=== PATIENT | female | born 1965 | race African-American/Black ===

== ENCOUNTER 2016-09-19 16:08 | Emergency (ER) | payer OTHER ==
[~2016-09-19] VITALS: Ht 167.6 cm; Wt 104.3 kg
[~2016-09-19 16:08] MED LIST: ALBUTEROL SULF8.5 GM INH; AZITHROMYCIN250 MG PO; CIPRO500 MG PO; CIPROFLOXACIN500 M2 ORAL; IBUPROFEN600 MG ORAL; MACROBID100 MG ORAL; NAPROXEN375 M2 ORAL; NITROFURANTOIN100 M2 ORAL; NKM; NORCO 5-325 TA1 EACH ORAL; NORCO 5-325 TA1 EACH PO; OMEPRAZOLE40 M1 ORAL; PHENAZOPYRIDIN200 MG ORAL; PHENERGAN/CODE120 ML PO; TRAMADOL HCL50 MG ORAL
[2016-09-19] MEDS ORDERED: Ketorolac 30mg Inj IV ONE (16:45)
[2016-09-19 17:30] VITALS: BP 106/70
[2016-09-19 17:31] LABS: APPEARANCE,URINE SLIGHTLY CLOUDY; KETONES,URINE NEGATIVE (NEGATIVE); LEUKOCYTE ESTERASE ,URINE 1+ (NEGATIVE); NITRITE,URINE NEGATIVE (NEGATIVE); PH,URINE 6 (4.5-8.0); PROTEIN,URINE NEGATIVE (NEGATIVE); UROBILINOGEN,URINE NORMAL MG/DL (0.0-1.0)
[2016-09-19 17:39] LABS: WBC,URINE 0-2 /HPF (0 - 2)
[2016-09-19 17:40] LABS: BACTERIA,URINE OCCASIONAL /HPF; SQUAMOUS EPITHELIAL CELL,UR MANY /LPF (NONE/OCC)
[2016-09-19 17:52] LABS: BASOPHILS % (AUTO) 1.4 % (0.0-2.0); EOSINOPHILS % (AUTO) 2.7 % (0.0-3.0); LYMPHOCYTES % (AUTO) 39.1 % (20.0-45.0); MEAN CORPUSCULAR HEMOGLOBIN 30.7 PG (27.0-31.0); MEAN CORPUSCULAR HGB CONC 34.9 G/DL (32.0-36.0); MEAN CORPUSCULAR VOLUME 88 FL (80-99); MEAN PLATELET VOLUME 6.9 FL (6.5-10.1); MONOCYTES % (AUTO) 6.3 % (1.0-10.0); NEUTROPHILS % (AUTO) 50.5 % (45.0-75.0); PLATELET COUNT 257 K/UL (150-450); RED BLOOD COUNT 4.43 M/UL (4.20-5.40); RED CELL DISTRIBUTION WIDTH 13.4 % (11.6-14.8); WHITE BLOOD COUNT 6.3 K/UL (4.8-10.8)
[2016-09-19 18:08] LABS: ALANINE AMINOTRANSFERASE 22 U/L (3-33); ALBUMIN/GLOBULIN RATIO 1.2 (1.0-2.7); ANION GAP 15 (5-15); ASPARTATE AMINO TRANSFERASE 22 U/L (5-40); CALCIUM 9.4 mg/dL (8.6-10.2); CARBON DIOXIDE 26 mEQ/L (20-30); CHLORIDE 100 mEQ/L (98-107); CREATININE 0.8 mg/dL (0.5-0.9); GLOMERULAR FILTRATION RATE > 60 mL/min (>60); HEMOLYSIS 59; POTASSIUM 4.3 mEQ/L (3.4-4.9); SODIUM 141 mEQ/L (135-145); TOTAL PROTEIN 7.5 g/dL (6.6-8.7)
[2016-09-19] MEDS ORDERED: TRAMADOL HCL50 MG ORAL (18:21)
[2016-09-19] MEDS ORDERED: IBUPROFEN600 MG ORAL (18:21)
[2016-09-19 18:58] VITALS: BP 127/85
--- NOTE | 2016-09-19 21:45 | Emergency Room Report ---
History of Present Illness General Chief Complaint: Abdominal Pain Present Illness [facility] The patient is a 50-year-old female presenting for lower back and abdominal pain. The patient states that she was at her primary doctor's office and told to come to the emergency department for further evaluation. She states that pain began 3 days prior in the lower abdomen and has radiated to the right lower back. It is described as a 9/10 sharp sensation. No known provoking or relieving factors. She does state that she has been experiencing perimenopause and menstruation has been irregular and more painful than usual. She is unsure if this is due to menstruation. She denies vaginal bleeding. She denies other symptoms including nausea, vomiting, fever, chills, cough, chest pain, shortness of breath, dysuria, hematuria, increased urinary frequency, diarrhea, constipation Allergies: Coded Allergies: No Known Allergies (Unverified , 06/05/12) Patient History Past Medical History: see triage record Pertinent Family History: none Last Menstrual Period: 08/12/16 Now: No : 3 Para: 3 Reviewed Nursing Documentation: PMH: Agreed, PSxH: Agreed Nursing Documentation-PMH Hx Cardiac Problems: No Hx Hypertension: No Hx Pacemaker: No Hx Asthma: No Hx COPD: No Hx Diabetes: No Hx Cancer: No Hx Dialysis: No Hx Neurological Problems: No Hx Cerebrovascular Accident: No Hx Seizures: No Review of Systems All Other Systems: negative except mentioned in HPI Physical Exam Vital Signs Date Time Temp Pulse Resp B/P Pulse Ox O2 Delivery O2 Flow Rate FiO2 09/19/16 16:25 98.1 79 18 106/70 82 Room Air Sp02 EP Interpretation: reviewed, normal General Appearance: no apparent distress, alert, GCS 15, non-toxic Head: normocephalic, atraumatic Eyes: bilateral eye PERRL, bilateral eye normal inspection ENT: hearing grossly normal, normal pharynx, no angioedema, normal voice Neck: full range of motion, supple/symm/no masses Respiratory: chest non-tender, lungs clear, normal breath sounds, speaking full sentences Cardiovascular #1: regular rate, rhythm, no edema Gastrointestinal: normal bowel sounds, soft, no mass, no guarding, tenderness - suprapubic and RLQ Genitourinary: normal inspection, no CVA tenderness Musculoskeletal: back normal, gait/station normal, normal range of motion, non- tender, calf tenderness Neurologic: alert, oriented x3, responsive, motor strength/tone normal, sensory intact, normal gait, speech normal Psychiatric: judgement/insight normal, memory normal, mood/affect normal, no suicidal/homicidal ideation Skin: normal color, no rash, warm/dry, well hydrated Lymphatic: no adenopathy Medical Decision Making PA Attestation Dr. Brown is my supervising physician. Patient management was discussed with my supervising physician Diagnostic Impression: Primary Impression: Abdominal pain Qualified Codes: R10.9 - Unspecified abdominal pain ER Course The patient is a 50-year-old female presenting for lower back and abdominal pain Differential diagnosis considered but not limited to: UTI, vaginitis, pyelonephritis, pyelonephrosis, dysmenorrhea, appendicitis PE: Vitals WNL. NAD. Abdomen: Normal appearance. Non distended. No ecchymosis. Normal BS. Tenderness to palpation over her suprapubic and right lower quadrant. No McBurney point tenderness. No guarding. No CVA tenderness Pelvic ultrasound unremarkable Blood work and urinalysis both unremarkable. The patient was given IV fluids and Toradol and is feeling much better. She will followup with PMD. ER precautions are given Laboratory Tests Test 09/19/16 16:30 09/19/16 17:37 Urine Color Yellow Urine Appearance Slightly cloudy Urine pH 6 (4.5-8.0) Urine Specific [place] 1.020 (1.005-1.035) Urine Protein Negative (NEGATIVE) Urine Glucose (UA) Negative (NEGATIVE) Urine Ketones Negative (NEGATIVE) Urine Occult Blood Negative (NEGATIVE) Urine Nitrite Negative (NEGATIVE) Urine Bilirubin Negative (NEGATIVE) Urine Urobilinogen Normal MG/DL (0.0-1.0) Urine Leukocyte Esterase 1+ (NEGATIVE) H Urine RBC 2-4 /HPF (0 - 2) H Urine WBC 0-2 /HPF (0 - 2) Urine Squamous Epithelial Cells Many /LPF (NONE/OCC) H Urine Bacteria Occasional /HPF (NONE) Urine HCG, Qualitative Negative White Blood Count 6.3 K/UL (4.8-10.8) Red Blood Count 4.43 M/UL (4.20-5.40) Hemoglobin 13.6 G/DL (12.0-16.0) Hematocrit 38.9 % (37.0-47.0) Mean Corpuscular Volume 88 FL (80-99) Mean Corpuscular Hemoglobin 30.7 PG (27.0-31.0) Mean Corpuscular Hemoglobin Concent 34.9 G/DL (32.0-36.0) Red Cell Distribution Width 13.4 % (11.6-14.8) Platelet Count 257 K/UL (150-450) Mean Platelet Volume 6.9 FL (6.5-10.1) Neutrophils (%) (Auto) 50.5 % (45.0-75.0) Lymphocytes (%) (Auto) 39.1 % (20.0-45.0) Monocytes (%) (Auto) 6.3 % (1.0-10.0) Eosinophils (%) (Auto) 2.7 % (0.0-3.0) Basophils (%) (Auto) 1.4 % (0.0-2.0) Sodium Level 141 mEQ/L (135-145) Potassium Level 4.3 mEQ/L (3.4-4.9) Chloride Level 100 mEQ/L (98-107) Carbon Dioxide Level 26 mEQ/L (20-30) Anion Gap 15 (5-15) Blood Urea Nitrogen 12 mg/dL (7-23) Creatinine 0.8 mg/dL (0.5-0.9) Estimate Glomerular Filtration Rate > 60 mL/min (>60) Glucose Level 99 mg/dL (74-106) Calcium Level 9.4 mg/dL (8.6-10.2) Total Bilirubin 0.2 mg/dL (0.0-1.2) Aspartate Amino Transferase (AST) 22 U/L (5-40) Alanine Aminotransferase (ALT) 22 U/L (3-33) Alkaline Phosphatase 78 U/L (35-104) Total Protein 7.5 g/dL (6.6-8.7) Albumin 4.1 g/dL (3.5-5.2) Globulin 3.4 g/dL Albumin/Globulin Ratio 1.2 (1.0-2.7) Lab Results Impression all unremarkable CT/MRI/US Diagnostic Results CT/MRI/US Diagnostic Results : Imaging Test Ordered: pelvic US Impression calcifications of uterus. Otherwise unremarkable Last Vital Signs Date Time Temp Pulse Resp B/P Pulse Ox O2 Delivery O2 Flow Rate FiO2 09/19/16 18:58 75 16 127/85 95 Room Air 09/19/16 18:21 98.0 Status: improved Disposition: HOME, SELF-CARE Condition: Improved Scripts Tramadol Hcl* (ULTRAM*) 50 Mg Tablet 50 MG ORAL Q8HR Y for For Pain, #10 TAB 0 Refills Prov: VEENA CASTAÑEDA P.A. 09/19/16 Ibuprofen* (MOTRIN*) 600 Mg Tablet 600 MG ORAL Q8H Y for For Pain, #30 TAB 0 Refills Prov: VEENA CASTAÑEDA P.A. 09/19/16 Patient Instructions: Abdominal Pain, Adult Additional Instructions: I discussed my findings with the patient. All questions and concerns have been answered. Treatment and medication compliance have been addressed. I advised the patient that they need to follow up with PMD in 3-5 days. Return to ED if symptoms worsen, new symptoms arise, or if needed for any reason. Patient verbalized understanding of discharge instructions. VEENA CASTAÑEDA September 19, 2016 21:45
--- NOTE | 2016-09-20 10:37 | Diagnostic Imaging Report ---
Indications: Right-sided pelvic pain, LMP 08/12/2016 Technique: Transabdominal and transvaginal real-time grayscale and duplex Doppler imaging of the pelvis was performed. Findings: Comparison: CT abdomen pelvis 11/28/08; pelvic ultrasound 11/03/06 Uterus measures 7.3 x 5.3 x 4.2cm. It demonstrates normal contour and myometrial echotexture.. The endometrial complex measures 2.4 mm in diameter. A small cluster of small nodular echogenic non-shadowing foci reside either within or directly adjacent to the posterior margin of the endometrial echo complex.. Small cysts in the cervix. No free fluid is present in the cul-de-sac. Right ovary measures 2.2 x 1.9 x 1 cm. It is unremarkable in appearance. Duplex Doppler imaging demonstrates normal blood flow. No extra-ovarian abnormality is seen. Left ovary measures 2.3 x 2.5 x 1.1 cm. It is unremarkable in appearance. Duplex Doppler imaging demonstrates normal blood flow. No extra-ovarian abnormality is seen. IMPRESSION: Unremarkable ovaries/adnexa--no evidence of torsion or other abnormality Small echogenic foci in or adjacent to endometrial echo complex may represent calcifications of nonspecific etiology, may be postinflammatory, postsurgical/postprocedural, or represent adjacent small degenerated, otherwise sonographically occult fibroid Cervical nabothian cysts
== END 2016-09-19 19:04 | disposition home or self-care (01) ==
LOC: EMR 17:21
DX: R10.9 Unspecified abdominal pain (principal); N85.8 Other specified noninflammatory disorders of uterus; M54.5 Low back pain; Z78.0 Asymptomatic menopausal state; N92.6 Irregular menstruation, unspecified; N94.6 Dysmenorrhea, unspecified
CPT/HCPCS: 36415; 76830; 76856; 80053; 81003; 81025; 85025; 96374; 99284; J1885

== ENCOUNTER 2017-10-07 12:31 | Emergency (ER) | payer MEDICAID, OTHER ==
[~2017-10-07] VITALS: Ht 167.6 cm; Wt 106.1 kg
--- NOTE | 2017-10-07 13:03 | Emergency Room Report ---
History of Present Illness General Chief Complaint: Pain Source: Patient Present Illness HPI 51-year-old female presents to the emergency Department with multiple complaints. First complaining of 10 out of 10 in severity bilateral pain to the plantar aspect/heel of the feet. Patient denies trauma or fall she denies known history of diabetes. Patient denies open wounds or rashes. Patient states that she has been having moderate strenuous activity because she has been helping her daughter move. Second complaint is multiple burning lesions in the groin area 2 days. Patient states initially she had to but now she is noticing that there are several more. Patient denies swollen tender lymph nodes , is not protected intercourse, history of herpes/STD's, or new soaps/ detergents. Patient denies itching. She also denies vaginal discharge. Patient reports that she has pain upon urination,in addition to urinary urgency. She denies fevers, chills, abdominal tenderness, constipation or diarrhea. Denies CP, Palpitations, LOC, AMS, dizziness, Changes in Vision, Sensation, paresthesias, or a sudden severe headache. Allergies: Coded Allergies: No Known Allergies (Unverified , 06/05/12) Patient History Past Medical History: see triage record Past Surgical History: none Pertinent Family History: none Last Menstrual Period: 08/2017 Now: No Reviewed Nursing Documentation: PMH: Agreed; PSxH: Agreed Nursing Documentation-PMH Hx Cardiac Problems: No Hx Hypertension: No Hx Pacemaker: No Hx Asthma: No Hx COPD: No Hx Diabetes: No Hx Cancer: No Hx Dialysis: No Hx Neurological Problems: No Hx Cerebrovascular Accident: No Hx Seizures: No Review of Systems All Other Systems: negative except mentioned in HPI Physical Exam Vital Signs Date Time Temp Pulse Resp B/P (MAP) Pulse Ox O2 Delivery O2 Flow Rate FiO2 10/07/17 12:36 98.3 84 17 123/64 95 Room Air 98.2 Sp02 EP Interpretation: reviewed, normal General Appearance: no apparent distress, alert, GCS 15, non-toxic Head: normocephalic, atraumatic ENT: hearing grossly normal, normal voice Neck: full range of motion Respiratory: chest non-tender, lungs clear, normal breath sounds, speaking full sentences Cardiovascular #1: regular rate, rhythm, no edema Gastrointestinal: non tender, soft Rectal: deferred Genitourinary: normal inspection Musculoskeletal: back normal, gait/station normal, normal range of motion, tender - the plantar aspect of the heels bilaterally. Neurologic: alert, oriented x3, responsive, motor strength/tone normal, sensory intact, normal gait, speech normal, grossly normal Psychiatric: judgement/insight normal Skin: normal color, warm/dry, well hydrated, rash - Painful vesicular lesions in a cropped/grouped pattern. no blisters, no abscess. Lymphatic: no adenopathy Medical Decision Making PA Attestation Dr. jaimes is my supervising Physician whom patient management has been discussed with. Diagnostic Impression: Primary Impression: Plantar fasciitis, bilateral Additional Impression: Herpetic lesions ER Course 51-year-old female presents to the emergency Department with multiple complaints. First complaining of 10 out of 10 in severity bilateral pain to the plantar aspect/heel of the feet. Patient denies trauma or fall she denies known history of diabetes. Patient denies open wounds or rashes. Patient states that she has been having moderate strenuous activity because she has been helping her daughter move. Second complaint is multiple burning lesions in the groin area 2 days. Patient states initially she had to but now she is noticing that there are several more. Patient denies swollen tender lymph nodes , is not protected intercourse, history of herpes/STD's, or new soaps/ detergents. Patient denies itching. She also denies vaginal discharge. Patient reports that she has pain upon urination,in addition to urinary urgency. She denies fevers, chills, abdominal tenderness, constipation or diarrhea. Denies CP, Palpitations, LOC, AMS, dizziness, Changes in Vision, Sensation, paresthesias, or a sudden severe headache. Ddx considered but are not limited to cellulitis/abscess, shingles, tinea, Herpes/STD, Neuropathy, plantar fasciitis, tendinitis, UTI just to name a few Vital signs: are WNL, pt. is afebrile H&PE are most consistent with : 1. Plantar fasciitis of the bilateral feet 2. Herpetic lesions in the vaginal area. - Painful vesicular lesions in a cropped/grouped pattern. ORDERS: -UA:Unremarkable ED INTERVENTIONS: Mortin PO -I do not identify an emergent condition at this time. With current presentation , pt. is stable for close outpatient follow up and conservative treatment. D/ w pt. to return promptly to ED with worsening or new symptoms.- Pt. (and or responsible alliance party) verbalizes' understanding and agreement with proposed treatment plan.proposed treatment plan. DISCHARGE: At this time pt. is stable for d/c to home. Will provide printed patient care instructions, and any necessary prescriptions. Care plan and follow up instructions have been discussed with the patient prior to discharge. Labs Test 10/07/17 13:00 Urine Color Pale yellow Urine Appearance Slightly cloudy Urine pH 5 (4.5-8.0) Urine Specific [place] 1.025 (1.005-1.035) Urine Protein Negative (NEGATIVE) Urine Glucose (UA) Negative (NEGATIVE) Urine Ketones Negative (NEGATIVE) Urine Occult Blood Negative (NEGATIVE) Urine Nitrite Negative (NEGATIVE) Urine Bilirubin Negative (NEGATIVE) Urine Urobilinogen Normal MG/DL (0.0-1.0) Urine Leukocyte Esterase 2+ (NEGATIVE) Urine RBC 0-2 /HPF (0 - 2) Urine WBC 10-15 /HPF (0 - 2) Urine Squamous Epithelial Cells Many /LPF (NONE/OCC) Urine Bacteria Few /HPF (NONE) Last Vital Signs Date Time Temp Pulse Resp B/P (MAP) Pulse Ox O2 Delivery O2 Flow Rate FiO2 10/07/17 12:36 98.3 84 17 123/64 95 Room Air 98.2 Disposition: HOME, SELF-CARE Condition: Stable Scripts Lidocaine HCL 2% Jelly* (Lidocaine Jelly 2%*) 5 Ml Jel.pf.coty 1 MG TOPIC DAILY for pain, #5 ML Prov: Risa Park P.A. 10/07/17 Valacyclovir Hcl* (VALTREX*) 500 Mg Tablet 1000 MG ORAL TWICE A DAY for 7 Days, #28 TAB Prov: Risa Park P.A. 10/07/17 Ibuprofen* (MOTRIN*) 600 Mg Tablet 600 MG ORAL THREE TIMES A DAY, #20 TAB 0 Refills Prov: Risa Park.A. 10/07/17 Patient Instructions: Genital Herpes, Plantar Fasciitis Additional Instructions: Take medications as directed. Follow up with a Primary Care Provider in 3-5 days, even if your symptoms have resolved. --Please review list of primary care clinics, if you do not already have a primary care provider Return sooner to ED if new symptoms occur, or current symptoms become worse. - Please note that this Emergency Department Report was dictated using [employer] project manager technology software, occasionally this can lead to erroneous entry secondary to interpretation by the dictation equipment. Risa Park October 07, 2017 13:03
[2017-10-07 13:13] LABS: APPEARANCE,URINE SLIGHTLY CLOUDY; BILIRUBIN, URINE NEGATIVE (NEGATIVE); COLOR,URINE PALE YELLOW; GLUCOSE, URINE (UA) NEGATIVE (NEGATIVE); KETONES,URINE NEGATIVE (NEGATIVE); LEUKOCYTE ESTERASE ,URINE 2+ (NEGATIVE); NITRITE,URINE NEGATIVE (NEGATIVE); PH,URINE 5 (4.5-8.0); PROTEIN,URINE NEGATIVE (NEGATIVE); UROBILINOGEN,URINE NORMAL MG/DL (0.0-1.0)
[2017-10-07 13:37] VITALS: BP 123/64
[2017-10-07] MEDS ORDERED: LD2JL30 TOPIC (14:12)
[2017-10-07] MEDS ORDERED: VALACYCLOVIR500 MG ORAL (14:12)
[2017-10-07] MEDS ORDERED: IBUPROFEN600 MG ORAL (14:12)
[2017-10-07 14:16] VITALS: BP 123/64
== END 2017-10-07 14:45 | disposition home or self-care (01) ==
LOC: EMR 13:09
DX: M72.2 Plantar fascial fibromatosis (principal); L98.8 Other specified disorders of the skin and subcutaneous tissue
CPT/HCPCS: 81003; 82962; 87086; 99284

== ENCOUNTER 2018-02-07 10:00 | Emergency (ER) | payer MEDICAID ==
[~2018-02-07] VITALS: Ht 167.6 cm; Wt 104.3 kg
[~2018-02-07 10:00] MED LIST changes: +LD2JL30 TOPIC; +VALACYCLOVIR500 MG ORAL
[2018-02-07 10:17] VITALS: BP 129/80
[2018-02-07] MEDS ORDERED: Acetaminophen 500mg (ES) tab ORAL ONE (10:45)
[2018-02-07] MEDS ORDERED: Cephalexin 500mg cap ORAL ONE (10:45)
[2018-02-07] MEDS ORDERED: Dexamethasone 4mg/ml vial IM ONE (10:45)
[2018-02-07 10:56] LABS: APPEARANCE,URINE CLEAR; BILIRUBIN, URINE NEGATIVE (NEGATIVE); GLUCOSE, URINE (UA) NEGATIVE (NEGATIVE); KETONES,URINE NEGATIVE (NEGATIVE); LEUKOCYTE ESTERASE ,URINE 2+ (NEGATIVE); NITRITE,URINE NEGATIVE (NEGATIVE); PH,URINE 6 (4.5-8.0); PROTEIN,URINE 1+ (NEGATIVE); UROBILINOGEN,URINE 1 MG/DL (0.0-1.0)
[2018-02-07 11:16] LABS: COLOR,URINE YELLOW
[2018-02-07] MEDS ORDERED: CEPHALEXIN500 MG ORAL (11:33)
[2018-02-07] MEDS ORDERED: METRONIDAZOLE500 MG ORAL (11:33)
[2018-02-07 11:37] VITALS: BP 129/80
--- NOTE | 2018-02-07 13:17 | Emergency Room Report ---
History of Present Illness General Chief Complaint: Upper Respiratory Illness Source: Patient Present Illness HPI 52-year-old female presents ED for evaluation. Patient complaining of sore throat, fever 2 days. temp 101.1 in ED. Denies cough. Denies ear ache or sore throat. Denies sick contacts or recent travel. Pain is 9 out of 10, dull , nonradiating. Hurst to swallow. Also complaining of dysuria and increased urinary frequency for several days now. Denies flank pain. Denies nausea or vomiting. No other aggravating relieving factors. Denies any other associated symptoms Allergies: Coded Allergies: No Known Allergies (Unverified , 06/05/12) Patient History Past Medical History: none Past Surgical History: none Pertinent Family History: none Social History: Denies: smoking, alcohol use, drug use Last Menstrual Period: NA Now: No Immunizations: UTD Reviewed Nursing Documentation: PMH: Agreed; PSxH: Agreed Nursing Documentation-PMH Past Medical History: No History, Except For Hx Cardiac Problems: No Hx Hypertension: No Hx Pacemaker: No Hx Asthma: No Hx COPD: No Hx Diabetes: No Hx Cancer: No Hx Dialysis: No Hx Neurological Problems: No Hx Cerebrovascular Accident: No Hx Seizures: No Review of Systems All Other Systems: negative except mentioned in HPI Physical Exam Vital Signs Date Time Temp Pulse Resp B/P (MAP) Pulse Ox O2 Delivery O2 Flow Rate FiO2 02/07/18 10:08 101.1 94 18 129/80 96 Room Air 101.1 Sp02 EP Interpretation: reviewed, normal General Appearance: no apparent distress, alert, GCS 15, non-toxic Head: normocephalic Eyes: bilateral eye normal inspection, bilateral eye PERRL ENT: hearing grossly normal, no angioedema, normal voice, TMs + canals normal, tonsillar swelling, pharyngeal erythema, tonsillar exudate Neck: full range of motion, supple/symm/no masses Respiratory: chest non-tender, lungs clear, normal breath sounds, speaking full sentences Cardiovascular #1: normal inspection Gastrointestinal: normal inspection Rectal: deferred Genitourinary: no CVA tenderness Musculoskeletal: normal inspection Neurologic: alert, oriented x3, responsive, motor strength/tone normal, sensory intact, speech normal Psychiatric: normal inspection Skin: normal inspection Lymphatic: normal inspection Medical Decision Making Diagnostic Impression: Primary Impression: Trichimoniasis Additional Impressions: UTI (lower urinary tract infection) Pharyngitis Qualified Codes: J02.9 - Acute pharyngitis, unspecified ER Course Hospital Course 52 yo F presents to ED c/o sore throat, fever, dysuria Differential diagnoses include: URI, pharyngitis, otitis media Clinical course Patient placed on stretcher. After initial history, physical exam reveals a middle aged female in no acute distress. Bilateral TM unremarkable. There is pharyngeal erythema w/ tonsillar exudates. No lymphadenopathy. Clinical findings consistent with pharyngitis. UAsome bacteria, trichomonas present Discussed findings with patient. Given Tylenol, Decadron, Keflex here. We'll discharge on Keflex and Flagyl. Safe for discharge with close outpatient follow -up Diagnosis - trichimonas, UTI, pharyngitis Stable and discharged home with prescriptions for keflex, flagyl. Instructed to followup with PMD. return to ED if symptoms recur or worsen Labs Test 02/07/18 10:15 Urine Color Yellow Urine Appearance Clear Urine pH 6 (4.5-8.0) Urine Specific [place] 1.010 (1.005-1.035) Urine Protein 1+ (NEGATIVE) Urine Glucose (UA) Negative (NEGATIVE) Urine Ketones Negative (NEGATIVE) Urine Blood 2+ (NEGATIVE) Urine Nitrite Negative (NEGATIVE) Urine Bilirubin Negative (NEGATIVE) Urine Urobilinogen 1 MG/DL (0.0-1.0) Urine Leukocyte Esterase 2+ (NEGATIVE) Urine RBC 0-2 /HPF (0 - 2) Urine WBC 5-10 /HPF (0 - 2) Urine Squamous Epithelial Cells Few /LPF (NONE/OCC) Urine Bacteria Occasional /HPF (NONE) Urine Trichomonas Occasional /HPF (NONE) Last Vital Signs Date Time Temp Pulse Resp B/P (MAP) Pulse Ox O2 Delivery O2 Flow Rate FiO2 02/07/18 11:37 98.3 94 18 129/80 96 Room Air 101.1 Status: improved Disposition: HOME, SELF-CARE Condition: Stable Scripts Metronidazole* (FLAGYL*) 500 Mg Tablet 500 MG ORAL THREE TIMES A DAY, #21 TAB Prov: Jakub Solano MD 02/07/18 Cephalexin* (KEFLEX*) 500 Mg Capsule 500 MG ORAL EVERY 6 HOURS for 7 Days, CAP Prov: Jakub Solano MD 02/07/18 Referrals: NON PHYSICIAN (PCP) Patient Instructions: Pharyngitis, [id number] Jakub Solano MD Feb 07, 2018 13:17
== END 2018-02-07 11:50 | disposition home or self-care (01) ==
LOC: EMR 11:46
DX: J02.9 Acute pharyngitis, unspecified (principal); N39.0 Urinary tract infection, site not specified; A59.9 Trichomoniasis, unspecified
CPT/HCPCS: 81003; 96372; 99283; J1100

== ENCOUNTER 2018-02-11 10:53 | Emergency (ER) | payer SELFPAY ==
[~2018-02-11] VITALS: Ht 167.6 cm; Wt 104.3 kg
[~2018-02-11 10:53] MED LIST changes: +CEPHALEXIN500 MG ORAL; +METRONIDAZOLE500 MG ORAL
[2018-02-11 11:20] VITALS: BP 122/84
[2018-02-11] MEDS ORDERED: OCUFLOX5 ML RIGHT EYE (12:23)
[2018-02-11 12:35] VITALS: BP 122/84
--- NOTE | 2018-02-12 07:39 | Emergency Room Report ---
History of Present Illness General Chief Complaint: Eye Problems Source: Patient Present Illness HPI 52-year-old female presents ED for evaluation. States that she has an eye infection in her right eye. Started 3 days ago. Denies fevers chills. Denies photophobia or blurry vision. Patient notes crusting and purulent discharge around the eye. Denies any symptoms in the left eye. Denies sick contacts or recent travel. No other aggravating relieving factors. Denies any other associated symptoms Allergies: Coded Allergies: No Known Allergies (Unverified , 06/05/12) Patient History Past Medical History: none Past Surgical History: none Pertinent Family History: none Social History: Denies: smoking, alcohol use, drug use Now: No Immunizations: UTD Reviewed Nursing Documentation: PMH: Agreed; PSxH: Agreed Nursing Documentation-PMH Past Medical History: No History, Except For Hx Cardiac Problems: No Hx Hypertension: No Hx Pacemaker: No Hx Asthma: No Hx COPD: No Hx Diabetes: No Hx Cancer: No Hx Dialysis: No Hx Neurological Problems: No Hx Cerebrovascular Accident: No Hx Seizures: No Review of Systems All Other Systems: negative except mentioned in HPI Physical Exam Vital Signs Date Time Temp Pulse Resp B/P (MAP) Pulse Ox O2 Delivery O2 Flow Rate FiO2 02/11/18 11:09 97.7 91 18 122/84 98 Room Air 97.7 Sp02 EP Interpretation: reviewed, normal General Appearance: no apparent distress, alert, GCS 15, non-toxic Head: normocephalic Eyes: right eye Scleral Injection, right eye other - discharge R eye; left eye normal inspection; bilateral eye PERRL, bilateral eye EOMI ENT: normal ENT inspection, TMs + canals normal Neck: normal inspection Respiratory: normal inspection Cardiovascular #1: normal inspection Gastrointestinal: normal inspection Rectal: deferred Genitourinary: no CVA tenderness Musculoskeletal: normal inspection Neurologic: alert, oriented x3, responsive, motor strength/tone normal, sensory intact, speech normal Psychiatric: normal inspection Skin: normal inspection Lymphatic: normal inspection Medical Decision Making Diagnostic Impression: Primary Impression: Conjunctivitis Qualified Codes: H10.31 - Unspecified acute conjunctivitis, right eye ER Course Hospital Course 52-year-old F presents to ED with R eye discharge Differential diagnoses include: conjunctivitis, traumatic iritis, foreign body, corneal abrasion Clinical course Patient placed on stretcher. After initial history, physical exam revealed a middle-aged female no acute distress. There is injected conjunctiva R eyes. crusting noted. Pupils equally reactive to light bilaterally. No evidence of foreign body. Clinical findings consistent with conjunctivitis. Discussed findings with patient. We'll prescribe ophthalmic antibiotics. Safely discharged with close outpatient follow-up Diagnosis - conjunctivitis Stable and discharged to home with prescription for Ocuflox. Followup with PMD/ Optho. Return to ED if symptoms recur or worsen Last Vital Signs Date Time Temp Pulse Resp B/P (MAP) Pulse Ox O2 Delivery O2 Flow Rate FiO2 02/11/18 12:35 97.7 91 18 122/84 98 Room Air 97.7 Status: improved Disposition: HOME, SELF-CARE Condition: Stable Scripts Ofloxacin (OCUFLOX) 5 Ml Drops 1 DROP RIGHT EYE QID for 7 Days, ML Prov: Jakub Solano MD 02/11/18 Referrals: NON PHYSICIAN (PCP) Patient Instructions: Bacterial Conjunctivitis Jakub Solano MD Feb 12, 2018 07:39
== END 2018-02-11 12:45 | disposition home or self-care (01) ==
LOC: EMR 12:45
DX: H10.31 Unspecified acute conjunctivitis, right eye (principal)
CPT/HCPCS: 99282

== ENCOUNTER 2019-06-21 11:57 | Emergency (ER) | payer MEDICAID ==
[~2019-06-21] VITALS: Ht 167.6 cm; Wt 104.3 kg
[~2019-06-21 11:57] MED LIST changes: +LIDODERM700 M1 TOPIC; +OCUFLOX5 ML RIGHT EYE; +ROBAXIN-750750 MG PO
[2019-06-21 12:26] VITALS: BP 122/84
--- NOTE | 2019-06-21 12:26 | NUR ---
ED Nurse Note: frequent urination and dysuria x 2 weeks. no hematuria. pain now radiates to back
--- NOTE | 2019-06-21 12:38 | NUR ---
ED Nurse Note: urine sent to lab
[2019-06-21 13:03] LABS: APPEARANCE,URINE CLEAR; BILIRUBIN, URINE NEGATIVE (NEGATIVE); COLOR,URINE PALE YELLOW; GLUCOSE, URINE (UA) NEGATIVE (NEGATIVE); KETONES,URINE NEGATIVE (NEGATIVE); LEUKOCYTE ESTERASE ,URINE 2+ (NEGATIVE); NITRITE,URINE NEGATIVE (NEGATIVE); PH,URINE 5 (4.5-8.0); PROTEIN,URINE NEGATIVE (NEGATIVE); UROBILINOGEN,URINE NORMAL MG/DL (0.0-1.0)
[2019-06-21] MEDS ORDERED: CEPHALEXIN500 MG ORAL (13:20)
[2019-06-21] MEDS ORDERED: PHENAZOPYRIDIN100 MG ORAL (13:20)
--- NOTE | 2019-06-21 13:21 | Emergency Room Report ---
History of Present Illness General Chief Complaint: Female Urogenital Problems Source: Patient (Neeta Bello NThelma P.AThelma) Present Illness HPI 53-year-old female presents with 2 weeks of dysuria, frequency, suprapubic pain. Recently the pain started radiating to her bilateral flank. Denies any hematuria, fever, vomiting. Patient has history of UTI and reports the feeling is the same. Denies any vaginal itching or discharge. (Neeta Bello N. P.A.) Allergies: Coded Allergies: No Known Allergies (Unverified , 06/05/12) Patient History Past Medical History: see triage record Last Menstrual Period: none Now: No Reviewed Nursing Documentation: PMH: Agreed; PSxH: Agreed (Neeta Bello N. P.A.) Nursing Documentation-PMH Past Medical History: No History, Except For Hx Cardiac Problems: No Hx Hypertension: No Hx Pacemaker: No Hx Asthma: No Hx COPD: No Hx Diabetes: No Hx Cancer: No Hx Dialysis: No Hx Neurological Problems: No Hx Cerebrovascular Accident: No Hx Seizures: No (Neeta Bello N. P.A.) Review of Systems All Other Systems: negative except mentioned in HPI (Neeta Bello N. P.A.) Physical Exam Vital Signs Date Time Temp Pulse Resp B/P (MAP) Pulse Ox O2 Delivery O2 Flow Rate FiO2 06/21/19 12:16 98.4 85 18 122/84 (97) 99 Room Air Sp02 EP Interpretation: reviewed, normal General Appearance: normal inspection, well appearing, no apparent distress, alert, GCS 15, non-toxic Respiratory: chest non-tender, lungs clear, normal breath sounds, no respiratory distress Cardiovascular #1: normal peripheral pulses, regular rate, rhythm Gastrointestinal: normal inspection, normal bowel sounds, non tender, soft, no mass, no organomegaly, no guarding, no rebound Genitourinary: no CVA tenderness Neurologic: alert, motor strength/tone normal, 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 P.A.) Medical Decision Making PA Attestation Dr. Barnett is my supervising physician whom patient management and care has been discussed with. (Neeta Bello N. P.A.) Diagnostic Impression: Primary Impression: UTI (lower urinary tract infection) ER Course Pt. presents to the ED c/o urinary symptoms for 2 weeks Ddx considered but are not limited to UTI, pyelonephritis, nephrolithiasis, vaginitis Vital signs: are WNL, pt. is afebrile H&PE are most consistent with UTI ORDERS: Urinalysis shows evidence of UTI ED INTERVENTIONS: None required at this time. DISCHARGE: At this time pt. is stable for d/c to home. Will provide printed patient care instructions, and prescriptions for Keflex and Pyridium. Care plan and follow up instructions have been discussed with the patient prior to discharge. Laboratory Tests Test 06/21/19 12:20 Urine Color Pale yellow Urine Appearance Clear Urine pH 5 (4.5-8.0) Urine Specific [place] 1.020 (1.005-1.035) Urine Protein Negative (NEGATIVE) Urine Glucose (UA) Negative (NEGATIVE) Urine Ketones Negative (NEGATIVE) Urine Blood Negative (NEGATIVE) Urine Nitrite Negative (NEGATIVE) Urine Bilirubin Negative (NEGATIVE) Urine Urobilinogen Normal MG/DL (0.0-1.0) Urine Leukocyte Esterase 2+ (NEGATIVE) H Urine RBC 0-2 /HPF (0 - 2) Urine WBC 5-10 /HPF (0 - 2) H Urine Squamous Epithelial Cells Few /LPF (NONE/OCC) Urine Bacteria Few /HPF (NONE) (Neeta Bello N. P.A.) Last Vital Signs Date Time Temp Pulse Resp B/P (MAP) Pulse Ox O2 Delivery O2 Flow Rate FiO2 06/21/19 12:26 98.4 85 18 122/84 99 Room Air (Neeta Bello N. P.A.) Disposition: HOME, SELF-CARE Condition: Stable Scripts Phenazopyridine Hcl* (PYRIDIUM*) 100 Mg Tablet 100 MG ORAL THREE TIMES A DAY for 2 Days, #6 TAB Prov: Neeta Bello N. P.A. 06/21/19 Cephalexin* (KEFLEX*) 500 Mg Capsule 500 MG ORAL EVERY 6 HOURS for 7 Days, #28 CAP Prov: Neeta Bello N. P.A. 06/21/19 Patient Instructions: Urinary Tract Infection Additional Instructions: Take medications as directed. Follow up with a Primary Care Provider in 3-5 days, even if your symptoms have resolved. --Please review list of primary care clinics, if you do not already have a primary care provider Return sooner to ED if new symptoms occur, or current symptoms become worse. - Please note that this Emergency Department Report was dictated using [employer] technology software, occasionally this can lead to erroneous entry secondary to interpretation by the dictation equipment. Neeta Bello Jun 21, 2019 13:21 Mary Barnett M.D. Jun 30, 2019 06:29
[2019-06-21 13:28] VITALS: BP 126/79
--- NOTE | 2019-06-21 13:29 | NUR ---
ER DISCHARGE NOTE: Patient is cleared to be discharged per ERMD, pt is aox4, on room air, with stable vital signs. pt was given dc and prescription instructions, pt was able to verbalize understanding, pt id band removed. pt is able to ambulate with steady gait. pt took all belongings.
== END 2019-06-21 13:28 | disposition home or self-care (01) ==
LOC: EMR 13:21
DX: N39.0 Urinary tract infection, site not specified (principal)
CPT/HCPCS: 81003; Z7502; 99283

== ENCOUNTER 2020-03-28 09:07 | Emergency (ER) | payer OTHER ==
[~2020-03-28] VITALS: Ht 167.6 cm; Wt 104.3 kg
[~2020-03-28 09:07] MED LIST changes: +CLARITIN-D 121 EAC1 ORAL; +FLONASE ALLERG9.9 ML NS; +FLUCONAZOLE100 MG ORAL; +IBU800 MG PO; +PHENAZOPYRIDIN100 MG ORAL; +ROBAXIN-500MG ORAL
[2020-03-28 09:30] VITALS: BP 127/84
[2020-03-28] MEDS ORDERED: Acetaminophen 500mg (ES) tab ORAL ONE (10:15)
[2020-03-28] MEDS ORDERED: Ketorolac 60mg Inj IM ONE (10:15)
[2020-03-28 10:20] LABS: APPEARANCE,URINE SLIGHTLY CLOUDY; BILIRUBIN, URINE NEGATIVE (NEGATIVE); GLUCOSE, URINE (UA) NEGATIVE (NEGATIVE); KETONES,URINE NEGATIVE (NEGATIVE); LEUKOCYTE ESTERASE ,URINE 2+ (NEGATIVE); NITRITE,URINE NEGATIVE (NEGATIVE); PH,URINE 5 (4.5-8.0); PROTEIN,URINE NEGATIVE (NEGATIVE); UROBILINOGEN,URINE NORMAL MG/DL (0.0-1.0)
[2020-03-28 10:24] LABS: COLOR,URINE PALE YELLOW
--- NOTE | 2020-03-28 11:03 | Diagnostic Imaging Report ---
EXAM: CT Abdomen and Pelvis Without Intravenous Contrast CLINICAL HISTORY: PAIN TECHNIQUE: Axial computed tomography images of the abdomen and pelvis without intravenous contrast. CTDI is 22.00 mGy and DLP is 1165.60 mGy-cm. One or more of the following dose reduction techniques were used: automated exposure control, adjustment of the mA and/or kV according to patient size, use of iterative reconstruction technique. COMPARISON: CT abdomen and pelvis November 28, 2008 FINDINGS: Lung bases: Unremarkable. No mass. No consolidation. ABDOMEN: Liver: Unremarkable. Gallbladder and bile ducts: Cholecystectomy. No hydronephrosis or nephrolithiasis. No obstructive uropathy. No ductal dilation. Pancreas: Unremarkable. No ductal dilation. Spleen: Unremarkable. No splenomegaly. Adrenals: Unremarkable. No mass. Kidneys and ureters: Left upper pole renal cyst measuring 3.3 x 3.7 cm. No follow-up indicated. Stomach and bowel: Mild diverticulosis, without acute diverticulitis. No obstruction. PELVIS: Appendix: Normal appendix. Mildly prominent appendix measuring up to 7 mm, without adjacent inflammation or wall thickening. Findings are consistent with a normal appendix. Bladder: Unremarkable. No stones. Reproductive: Unremarkable as visualized. ABDOMEN and PELVIS: Intraperitoneal space: Unremarkable. No free air. No significant fluid collection. Bones/joints: Degenerative changes of the spine. Soft tissues: Small fat-containing umbilical hernia. Vasculature: Unremarkable. No abdominal aortic aneurysm. Lymph nodes: Unremarkable. No enlarged lymph nodes. IMPRESSION: 1. No hydronephrosis or nephrolithiasis. No obstructive uropathy. If there is continued, high clinical suspicion for right up to the Azeb, correlate with CT urogram protocol. 2. Left upper pole renal cyst measuring 3.3 x 3.7 cm. No follow-up indicated. 3. Small fat-containing umbilical hernia. 4. Mild diverticulosis, without acute diverticulitis. 5. Cholecystectomy. 6. Normal appendix.
[2020-03-28] MEDS ORDERED: CIPROFLOXACIN500 M2 ORAL (11:11)
[2020-03-28] MEDS ORDERED: IBUPROFEN600 M1 ORAL (11:14)
[2020-03-28 11:33] VITALS: BP 125/82
--- NOTE | 2020-03-28 13:46 | Emergency Room Report ---
History of Present Illness General Chief Complaint: Pain Source: Patient Present Illness HPI 54-year-old female here with right flank pain and dysuria. Patient says her symptoms have been ongoing for 2 days. Says that she suffers from frequent urinary tract infections and says that she believes that she had pyelonephritis at one point several years ago. Pain is sharp in nature, located in the right flank and suprapubic region. Does not otherwise radiate. No fevers, chills, chest pain, palpitation, shortness of breath, other back pain, other abdominal pain, nausea, vomiting, diarrhea, dysuria. Has been taking Motrin for the pain with intermittent relief. At this time the pain is 7 out of 10 in intensity. Allergies: Coded Allergies: No Known Allergies (Unverified , 06/05/12) COVID-19 Screening Contact w/high risk pt: No Recent Travel to affected area: No Experienced COVID-19 symptoms?: No COVID-19 Testing performed FREIGHT TALLIER: No Patient History Now: No Nursing Documentation-[facility] Past Medical History: No History, Except For Hx Cardiac Problems: No Hx Hypertension: No Hx Pacemaker: No Hx Asthma: No Hx COPD: No Hx Diabetes: No Hx Cancer: No Hx Dialysis: No Hx Neurological Problems: No Hx Cerebrovascular Accident: No Hx Seizures: No Review of Systems All Other Systems: negative except mentioned in HPI Physical Exam Vital Signs Date Time Temp Pulse Resp B/P (MAP) Pulse Ox O2 Delivery O2 Flow Rate FiO2 03/28/20 09:12 98.2 84 18 127/84 (98) 96 Room Air Sp02 EP Interpretation: reviewed, normal General Appearance: no apparent distress, alert, non-toxic Head: normocephalic, atraumatic Eyes: bilateral eye normal inspection, bilateral eye PERRL ENT: hearing grossly normal, normal pharynx, no angioedema, normal voice Neck: full range of motion, supple/symm/no masses Respiratory: chest non-tender, lungs clear, normal breath sounds, speaking full sentences Cardiovascular #1: regular rate, rhythm, no edema Cardiovascular #2: 2+ carotid (R), 2+ carotid (L), 2+ radial (R), 2+ radial (L ), 2+ dorsalis pedis (R), 2+ dorsalis pedis (L) Gastrointestinal: normal bowel sounds, non tender, soft, non-distended, no guarding, no rebound, other Rectal: deferred Genitourinary: normal inspection, other - Moderate suprapubic tenderness on palpation. Very mild right flank pain on percussion Musculoskeletal: back normal, normal range of motion, gait/station normal, non- tender Neurologic: alert, motor strength/tone normal, sensory intact, responsive, speech normal Psychiatric: judgement/insight normal, memory normal, mood/affect normal, no suicidal/homicidal ideation Lymphatic: no adenopathy Medical Decision Making Diagnostic Impression: Primary Impression: Pyelonephritis Additional Impression: UTI (lower urinary tract infection) ER Course Laboratory Tests Test 03/28/20 10:00 Urine Color Pale yellow Urine Appearance Slightly cloudy Urine pH 5 (4.5-8.0) Urine Specific [place] 1.025 (1.005-1.035) Urine Protein Negative (NEGATIVE) Urine Glucose (UA) Negative (NEGATIVE) Urine Ketones Negative (NEGATIVE) Urine Blood Negative (NEGATIVE) Urine Nitrite Negative (NEGATIVE) Urine Bilirubin Negative (NEGATIVE) Urine Urobilinogen Normal MG/DL (0.0-1.0) Urine Leukocyte Esterase 2+ (NEGATIVE) H Urine RBC 0-2 /HPF (0 - 2) Urine WBC 10-15 /HPF (0 - 2) H Urine Squamous Epithelial Cells Few /LPF (NONE/OCC) Urine Bacteria Few /HPF (NONE) CT abd pel: IMPRESSION: 1. No hydronephrosis or nephrolithiasis. No obstructive uropathy. If there is continued, high clinical suspicion for right up to the Azeb, correlate with CT urogram protocol. 2. Left upper pole renal cyst measuring 3.3 x 3.7 cm. No follow-up indicated. 3. Small fat-containing umbilical hernia. 4. Mild diverticulosis, without acute diverticulitis. 5. Cholecystectomy. 6. Normal appendix. 54-year-old female here with right flank pain and dysuria. Patient had evidence of urinary tract infection on urinalysis. She had normal vital signs and was in no acute distress. CT abdomen pelvis did not reveal any evidence of pyelonephritis or nephrolithiasis. However despite this there is high suspicion that the patient is suffering from pyelonephritis given her urinary tract infection and right flank pain. She was given a prescription for ciprofloxacin and told to come back to the emergency department if her symptoms worsen. Given prescription for ibuprofen for pain. Discharged in stable condition. Last Vital Signs Date Time Temp Pulse Resp B/P (MAP) Pulse Ox O2 Delivery O2 Flow Rate FiO2 03/28/20 09:30 98.2 18 127/84 96 Room Air 03/28/20 09:12 84 Disposition: HOME, SELF-CARE Condition: Stable Scripts Ibuprofen* (MOTRIN*) 600 Mg Tablet 600 MG ORAL Q6H PRN for FOR PAIN, #20 TAB 0 Refills Prov: Сергей Marti M.D. 03/28/20 Ciprofloxacin Hcl* (CIPROFLOXACIN HCL*) 500 Mg Tablet 500 MG ORAL Q12H, #14 TAB 0 Refills Prov: Сергей Marti M.D. 03/28/20 Referrals: [facility] Patient Instructions: Pyelonephritis, Adult Additional Instructions: Please follow-up with your primary care doctor in the next 1 to 3 days to discuss this emergency department visit and for reevaluation. If you have any new or worsening symptoms please return to the emergency department for reevaluation. Сергей Marti M.D. Mar 28, 2020 13:46
== END 2020-03-28 11:33 | disposition home or self-care (01) ==
LOC: EMR 09:45
DX: N12 Tubulo-interstitial nephritis, not specified as acute or chronic (principal); N28.1 Cyst of kidney, acquired; K42.9 Umbilical hernia without obstruction or gangrene; K57.90 Diverticulosis of intestine, part unspecified, without perforation or abscess without bleeding; Z90.49 Acquired absence of other specified parts of digestive tract
CPT/HCPCS: 74176; 81003; 87086; 96372; 99284